=== PATIENT | female | born 1995 | race Caucasian/White ===

== ENCOUNTER → 2018-11-17 | Outpatient (CLI) | payer BC ==
--- NOTE | 2018-11-17 15:36 | PCVCIMAG ---
APPROVED REPORT Study performed: 11/17/2018 14:11:00 Exam: Stress Echocardiogram Indication: Hypertension Patient Location: Echo lab Stress Nurse: Betty Brar RN Status: routine Ht: 5 ft 1 in HR: 88 bpm BP: 140/80 mmHg Rhythm: NSR Medical History Medical History: HTN Procedure The patient underwent an Exercise Stress Test using the Jan Protocol. Blood pressure, heart rate, and EKG were monitored. An Echocardiogram was performed by jewelry technician in four stages in quad fashion. At peak stress, four selected images were obtained and placed side by side with resting images for comparison. Stress Test Details Stress Test: Exercise stress testing was performed using a Jan protocol. HR Resting HR: 88 bpmMax Heart Rate (APMHR): 196 bpm Max HR Achieved: 190 bpmTarget HR (85% APMHR): 166 bpm % of APMHR: 96 Recovery HR: 125 bpm HR response to stress: Normal HR response to stress BP Resting BP: 140/80 mmHg Max BP: 168/80 mmHg Recovery BP: 140/70 mmHg BP response to stress: Normal blood pressure response to stress. ECG Resting ECG: Sinus Rhythm Stress ECG: Sinus Rhythm ST Change: Non-ischemic Recovery ECG: Sinus Rhythm Clinical Reason for Termination: Maximal effort Exercise duration: 8 min sec Highest Stage Achieved: Stage 3: 3.4 mph at 14% grade. Exercise capacity: 10.10 METs Overall Exercise Capacity for Age: Normal Pre-Stress Echo The resting Echocardiogram showed normal left ventricular contractility with an estimated Ejection Fraction of about 55-60%. Normal wall motion in all segments on baseline images. Post-Stress Echo The stress Echocardiogram showed normal left ventricular contractility with an estimated Ejection Fraction of about 65-70%. Normal augmentation of wall motion in all segments on post stress images. Clinical No clinical or ECG evidence for ischemia. Conclusion Clinical Response: Non-ischemic Exercise Capacity: Average Stress ECG Response: Non-ischemic Stress Echo Images: Non-ischemic Other Information Study Quality: Good
== END | disposition home or self-care (01) ==
LOC: PCVCIMAG 14:11
PROVIDERS: ATTEND Internal Medicine Cardiovascular Disease
DX: I10 Essential (primary) hypertension (principal); R07.9 Chest pain, unspecified
CPT/HCPCS: 93325; 93351